=== PATIENT | male | born 1970 | race Caucasian/White ===

== ENCOUNTER 2016-09-12 18:59 | Inpatient (IN) | payer MEDICARE, MEDICAID ==
[~2016-09-12] VITALS: Ht 175.3 cm; Wt 148.3 kg
[~2016-09-12 18:59] MED LIST: AMBIEN CR12.5 MG ORAL; ANDROGEL75 G1 TD; BENICAR HCT 401 EACH ORAL; BUPROPION XL150 MG ORAL; BUPROPION XL300 MG ORAL; BYSTOLIC10 MG ORAL; CLINDAMYCIN HC300 MG ORAL; FUROSEMIDE40 MG ORAL; LEVOTHYROXINE25 MCG ORAL; LOSARTAN POTASS50 MG ORAL; NAPROXEN500 M2 ORAL; NORCO 10/3251 EA ORAL; NORVIR100 MG ORAL; POTASSIUM CHLO20 ME1 ORAL; PREZCOBIX 8001 EACH PO; PREZISTA400 MG ORAL; REVATIO20 MG ORAL; TRUVADA 200 MG1 EAC1 ORAL
--- NOTE | 2016-09-12 19:42 | Emergency Room Report ---
History of Present Illness General Chief Complaint: Dyspnea/Respdistress Source: Patient Present Illness HPI Patient's 45-year-old male who presented after increased respiratory patient gradual onset of symptoms associated with increased swelling to his lower extremities. Patient stated that he had prior history of lipodystrophy as well as HIV disease. Patient states that he had decreased exercise tolerance over the past few days. Patient was noted to have no fever. He had not cough. Allergies: Coded Allergies: No Known Allergies (Verified Allergy, Unknown, 03/24/08) Patient History Past Medical History: see triage record Reviewed Nursing Documentation: PMH: Agreed, PSxH: Agreed Nursing Documentation-PMH Hx Cardiac Problems: Yes - HIV+ Hx Hypertension: Yes Hx Cancer: No Hx Gastrointestinal Problems: Yes - BILATERAL INGUINAL HERNIA, UMBILICAL HERNIA Hx Neurological Problems: No Review of Systems All Other Systems: negative except mentioned in HPI Physical Exam Vital Signs Date Time Temp Pulse Resp B/P Pulse Ox O2 Delivery O2 Flow Rate FiO2 09/12/16 19:04 98.4 97 20 104/71 93 Room Air Sp02 EP Interpretation: reviewed, normal General Appearance: normal inspection, alert, GCS 15, non-toxic, obese, Chronically Ill Head: atraumatic ENT: normal ENT inspection, hearing grossly normal, normal voice Neck: full range of motion, supple, no bony tend, other - posterior neck fullness Respiratory: normal inspection, no respiratory distress, no retraction, decreased breath sounds, wheezing Cardiovascular #1: regular rate, rhythm, edema Gastrointestinal: normal inspection, normal bowel sounds, non tender, soft, no guarding, no hernia Genitourinary: no CVA tenderness Musculoskeletal: normal inspection, back normal, normal range of motion Neurologic: normal inspection, alert, oriented x3, responsive, risk management manager III-XII nml as tested, speech normal Psychiatric: normal inspection, judgement/insight normal, mood/affect normal Skin: normal inspection, normal color, no rash Medical Decision Making ER Course Patient presented for shortness of breath.Differential included but was not limited to anemia, pneumonia, pneumothorax, myocardial infarction, pericardial effusion, congestive heart failure, acidosis. Because of complexity of patient' s case laboratory testing and imaging studies were ordered.The patient was noted to have a decreased exercise tolerance. He was noted to have some wheezing on exam. Patient was given a breathing treatment. Laboratory testing was noted for a normal white blood count. 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 Dr. Trent Sam was contacted for inpatient management. Labs Test 09/12/16 19:30 09/12/16 19:50 09/13/16 05:30 D-Dimer 1244 ng/mL (<500) Troponin I < 0.30 ng/mL (<=0.30) Pro-B-Type Natriuretic Peptide 106 pg/mL (0-125) Anion Gap 14 (5-15) Total Bilirubin 0.4 mg/dL (0.0-1.2) Aspartate Amino Transf (AST/SGOT) 26 U/L (5-40) Alanine Aminotransferase (ALT/SGPT) 36 U/L (3-41) Alkaline Phosphatase 77 U/L (40-129) Total Protein 7.2 g/dL (6.6-8.7) Albumin 3.4 g/dL (3.5-5.2) Globulin 3.8 g/dL Albumin/Globulin Ratio 0.8 (1.0-2.7) Last Vital Signs Date Time Temp Pulse Resp B/P Pulse Ox O2 Delivery O2 Flow Rate FiO2 09/12/16 19:04 98.4 97 20 104/71 93 Room Air Status: unchanged Disposition: ADMITTED INPATIENT Condition: Serious Referrals: NOT CHOSEN SIOBHAN/,REFERRING (PCP) Mahad Farfan Sep 12, 2016 19:42
[2016-09-12] MEDS ORDERED: DuoNeb 0.5-3(2.5)mg/3ml neb HHN ONE (19:45)
[2016-09-12 19:55] LABS: BASOPHILS % (AUTO) 0.5 % (0.0-2.0); EOSINOPHILS % (AUTO) 0.8 % (0.0-3.0); LYMPHOCYTES % (AUTO) 15.1 % (20.0-45.0); MEAN CORPUSCULAR HGB CONC 36.4 G/DL (32.0-36.0); MEAN CORPUSCULAR VOLUME 93 FL (80-99); MEAN PLATELET VOLUME 6.7 FL (6.5-10.1); MONOCYTES % (AUTO) 6.5 % (1.0-10.0); NEUTROPHILS % (AUTO) 77.1 % (45.0-75.0); PLATELET COUNT 194 K/UL (150-450); RED BLOOD COUNT 5.07 M/UL (4.70-6.10); RED CELL DISTRIBUTION WIDTH 14.1 % (11.6-14.8); WHITE BLOOD COUNT 11.5 K/UL (4.8-10.8)
[2016-09-12 20:00] VITALS: BP 175/76
[2016-09-12 20:15] VITALS: BP 186/81
[2016-09-12 20:15] LABS: TROPONIN I < 0.30 ng/mL (<=0.30)
[2016-09-12 20:30] VITALS: BP 175/76
[2016-09-12 21:00] VITALS: BP 134/68
[2016-09-12 21:00] LABS: ALBUMIN/GLOBULIN RATIO 0.8 (1.0-2.7); CALCIUM 9.2 mg/dL (8.6-10.2); CREATININE 1.5 mg/dL (0.7-1.2); GLOMERULAR FILTRATION RATE 50.2 mL/min (>60); POTASSIUM 5.1 mEQ/L (3.4-4.9); TOTAL PROTEIN 7.2 g/dL (6.6-8.7)
[2016-09-12] MEDS ORDERED: Norco 10mg/325mg tab ORAL PRN (21:15)
--- NOTE | 2016-09-12 21:24 | History & Physical ---
History and Physical History & Physicial DATE OF ADMISSION: 09/12/16 REASON FOR ADMISSION: CHF HISTORY OF PRESENT ILLNESS: This is a 45-year-old male with history of HIV, hypertension, hepatitis C, status post treatment, who underwent repair of bilateral inguinal hernia and major repair of umbilical hernia on 05/31/2014 p/w worsening RODRIGUEZ over last few weeks. He states he can walk only a few ft bf getting SOB. He denies CP. PAST MEDICAL HISTORY: Hypertension, HIV, hepatitis C, status post treatment. Lipodystrophy syndrome. Hypothyroidism. PAST SURGICAL HISTORY: Inguinal hernia repair and umbilical hernia repair, bilateral inguinal hernia repair as well as hip replacement x2. ALLERGIES: No known drug allergies. MEDICATIONS: 1. Wellbutrin 300 mg p.o. once daily. 2. Prezista 600 mg p.o. b.i.d. 3. Truvada 200-300 mg one tablet daily. 4. [place] 10/325 mg one tablet p.o. q.4 h. as needed. 5. Levothyroxine 25 mcg p.o. daily. 6. Losartan 100 mg p.o. once daily. 7. Bystolic 10 mg p.o. once daily. 8. Ritonavir 100 mg p.o. b.i.d. 9. Naproxen 500 mg twice a day. FAMILY HISTORY: Noncontributory. SOCIAL HISTORY: The patient denies smoking. He denies drinking any alcohol. He denies any drug use. REVIEW OF SYSTEM: A 10-point review of systems is negative except for pertinent positives as mentioned above PHYSICAL EXAMINATION: Last 24 Hour Vital Signs Date Time Temp Pulse Resp B/P Pulse Ox O2 Delivery O2 Flow Rate FiO2 09/12/16 20:30 143 29 175/76 94 Room Air 09/12/16 20:15 163 29 Room Air 09/12/16 20:15 163 29 186/81 94 Room Air 09/12/16 20:01 80 16 99 Room Air 21 09/12/16 19:46 97 18 100 Room Air 21 09/12/16 19:46 95 18 Room Air 21 09/12/16 19:04 98.4 97 20 104/71 93 Room Air GENERAL: The patient is in no acute distress. The patient appears comfortable. Obese HEENT: Normocephalic/atraumatic. Sclerae are anicteric. [place] Hump. NECK: Supple. No JVD. LUNGS: Clear to auscultation bilaterally. HEART: Heart sounds are regular rate and rhythm. Decreased heart sounds. No murmurs, gallop, or rubs. ABDOMEN: Obese. Abdomen is diffusely tender mildly. Nondistended. EXTREMITIES: No clubbing, cyanosis, or edema. LABORATORY DATA: Laboratory Tests Test 09/12/16 19:30 09/12/16 19:50 White Blood Count 11.5 K/UL (4.8-10.8) H Red Blood Count 5.07 M/UL (4.70-6.10) Hemoglobin 17.2 G/DL (14.2-18.0) Hematocrit 47.4 % (42.0-52.0) Mean Corpuscular Volume 93 FL (80-99) Mean Corpuscular Hemoglobin 34.0 PG (27.0-31.0) H Mean Corpuscular Hemoglobin Concent 36.4 G/DL (32.0-36.0) H Red Cell Distribution Width 14.1 % (11.6-14.8) Platelet Count 194 K/UL (150-450) Mean Platelet Volume 6.7 FL (6.5-10.1) Neutrophils (%) (Auto) 77.1 % (45.0-75.0) H Lymphocytes (%) (Auto) 15.1 % (20.0-45.0) L Monocytes (%) (Auto) 6.5 % (1.0-10.0) Eosinophils (%) (Auto) 0.8 % (0.0-3.0) Basophils (%) (Auto) 0.5 % (0.0-2.0) D-Dimer 1244 ng/mL (<500) H Troponin I < 0.30 ng/mL (<=0.30) Pro-B-Type Natriuretic Peptide 106 pg/mL (0-125) Sodium Level 139 mEQ/L (135-145) Potassium Level 5.1 mEQ/L (3.4-4.9) H Chloride Level 98 mEQ/L (98-107) Carbon Dioxide Level 27 mEQ/L (20-30) Anion Gap 14 (5-15) Blood Urea Nitrogen 39 mg/dL (7-23) H Creatinine 1.5 mg/dL (0.7-1.2) H Estimat Glomerular Filtration Rate 50.2 mL/min (>60) Glucose Level 95 mg/dL (74-106) Calcium Level 9.2 mg/dL (8.6-10.2) Total Bilirubin 0.4 mg/dL (0.0-1.2) Aspartate Amino Transf (AST/SGOT) 26 U/L (5-40) Alanine Aminotransferase (ALT/SGPT) 36 U/L (3-41) Alkaline Phosphatase 77 U/L (40-129) Total Protein 7.2 g/dL (6.6-8.7) Albumin 3.4 g/dL (3.5-5.2) L Globulin 3.8 g/dL Albumin/Globulin Ratio 0.8 (1.0-2.7) L IMPRESSION: 1. RODRIGUEZ -concerning for acute CHF exacerbation 2. h/o Testicular hydrocele. 3. Human immunodeficiency virus. 4. Hypertension. 5. Hypothyroidism. 6. History of hepatitis C, status post treatment. 7. EDMOND 8. Morbid obesity 9. Metabolic syndrome 10. Lipodystrophy sydrome 11. Robeson hump 12. DONALDO PLAN: 1. Admit to tele 2. Lasix 40mg IV daily 3. Resume HIV medications. 4. Cards consult with Dr. Dodd 5. TTE ordered 6. EKG 7. refused CPAP. 8. r/o MACO Coy M.D. Sep 12, 2016 21:24
[2016-09-12] MEDS: Heparin 5000 units/ml inj SUBQ SCH (22:17)
[2016-09-12 22:19] VITALS: BP 145/88
[2016-09-13] VITALS: BP 123/65
[2016-09-13 04:50] VITALS: BP 121/66
[2016-09-13] MEDS ORDERED: Levothyroxine 25mcg tab ORAL SCH (06:30)
[2016-09-13 07:25] LABS: BASOPHILS % (AUTO) 0.3 % (0.0-2.0); EOSINOPHILS % (AUTO) 0.8 % (0.0-3.0); LYMPHOCYTES % (AUTO) 16.4 % (20.0-45.0); MEAN CORPUSCULAR HEMOGLOBIN 31.1 PG (27.0-31.0); MEAN CORPUSCULAR VOLUME 94 FL (80-99); MEAN PLATELET VOLUME 6.5 FL (6.5-10.1); MONOCYTES % (AUTO) 6.8 % (1.0-10.0); NEUTROPHILS % (AUTO) 75.7 % (45.0-75.0); PLATELET COUNT 231 K/UL (150-450); RED BLOOD COUNT 5.13 M/UL (4.70-6.10); RED CELL DISTRIBUTION WIDTH 14.7 % (11.6-14.8); WHITE BLOOD COUNT 9.5 K/UL (4.8-10.8)
[2016-09-13 07:31] LABS: CREATININE 1.6 mg/dL (0.7-1.2); GLOMERULAR FILTRATION RATE 46.6 mL/min (>60); POTASSIUM 4.6 mEQ/L (3.4-4.9)
[2016-09-13 08:01] VITALS: BP 129/79
[2016-09-13] MEDS ORDERED: Revatio 20mg tab ORAL SCH (09:00)
[2016-09-13] MEDS ORDERED: BuPROPion XL 300mg tab ORAL SCH (09:00)
[2016-09-13] MEDS ORDERED: Emitricitabine/Tenofovir 200/300mg tab ORAL SCH (09:00)
[2016-09-13] MEDS ORDERED: Albuterol ud Inhalation HHN PRN (10:00)
[2016-09-13] MEDS: Heparin 5000 units/ml inj SUBQ SCH (10:17)
--- NOTE | 2016-09-13 11:19 | Diagnostic Imaging Report ---
Indication: Chest Pain Comparison: January 12, 2000 A single view chest radiograph was obtained. Findings: Interstitial edema suspected with cardiomegaly. Bones are unremarkable in appearance. No consolidative opacities are identified. Impression: Suspected mild interstitial edema
[2016-09-13 11:48] VITALS: BP 140/80
--- NOTE | 2016-09-13 14:25 | Internal Med Progress Note ---
Subjective Date of Service: Sep 13, 2016 Physician Name Nadeem Bateman Attending Physician Trent Sam M.D. Current Medications Medications (Trade) Dose Ordered Sig/Nataliya Route PRN Reason Start Time Stop Time Status Last Admin Dose Admin Acetaminophen (Tylenol) 650 mg Q4H PRN ORAL Mild Pain (Pain Scale 1-3) 09/12/16 21:15 10/12/16 21:14 Acetaminophen/ Hydrocodone Bitart ([place] 10/325) 1 ea Q4H PRN ORAL Moderate Pain (Pain Scale 4-6) 09/12/16 21:15 09/19/16 21:14 09/13/16 10:00 Albuterol Sulfate (Proventil) 2.5 mg Q4H PRN HHN Shortness of Breath 09/13/16 10:00 09/18/16 09:59 09/13/16 13:26 Baclofen (Lioresal) 10 mg BID ORAL 09/13/16 12:00 10/13/16 11:59 Bupropion HCl (Wellbutrin XL) 300 mg DAILY ORAL 09/13/16 09:00 10/13/16 08:59 09/13/16 09:58 Dextrose (Dextrose 50%) STAT PRN IV Hypoglycemia 09/12/16 21:15 10/12/16 21:14 Emtricitabine/ Tenofovir (Truvada 200/ 300mg) 1 tab DAILY ORAL 09/13/16 09:00 10/13/16 08:59 UNV Furosemide (Lasix) 40 mg DAILY IV 09/12/16 22:00 10/12/16 21:59 09/13/16 09:57 Heparin Sodium (Porcine) (Heparin 5000 units/ml) 5,000 units EVERY 12 HOURS SUBQ 09/12/16 22:00 10/12/16 21:59 09/13/16 10:17 Levothyroxine Sodium (Synthroid) 25 mcg DAILY@0630 ORAL 09/13/16 06:30 10/13/16 06:29 09/13/16 05:59 Nebivolol (Bystolic) 10 mg DAILY ORAL 09/13/16 09:00 10/13/16 08:59 09/13/16 10:00 Ondansetron HCl (Zofran) 4 mg Q6H PRN IVP Nausea & Vomiting 09/12/16 21:15 10/12/16 21:14 Sildenafil Citrate (Revatio) 20 mg DAILY ORAL 09/13/16 09:00 10/13/16 08:59 09/13/16 10:00 Temazepam (Restoril) 15 mg HSPRN PRN ORAL Insomnia 09/12/16 21:15 09/19/16 21:14 09/13/16 02:43 Allergies: Coded Allergies: No Known Allergies (Verified Allergy, Unknown, 03/24/08) ROS Limited/Unobtainable: No Constitutional: Reports: no symptoms HEENT: Reports: no symptoms Cardiovascular: Reports: no symptoms Respiratory: Reports: shortness of breath Gastrointestinal/Abdominal: Reports: no symptoms Genitourinary: Reports: no symptoms Neurologic/Psychiatric: Reports: no symptoms Subjective 45 YO M admitted for dyspnea on exertion. Now CHF. Cover for Int Med-Dr Sam. Objective Last Vital Signs Date Time Temp Pulse Resp B/P Pulse Ox O2 Delivery O2 Flow Rate FiO2 09/13/16 13:28 99 16 99 Room Air 21 09/13/16 11:48 97.0 140/80 Laboratory Tests Test 09/12/16 19:30 09/12/16 19:50 09/13/16 05:30 White Blood Count 11.5 K/UL (4.8-10.8) H 9.5 K/UL (4.8-10.8) Red Blood Count 5.07 M/UL (4.70-6.10) 5.13 M/UL (4.70-6.10) Hemoglobin 17.2 G/DL (14.2-18.0) 16.0 G/DL (14.2-18.0) Hematocrit 47.4 % (42.0-52.0) 48.4 % (42.0-52.0) Mean Corpuscular Volume 93 FL (80-99) 94 FL (80-99) Mean Corpuscular Hemoglobin 34.0 PG (27.0-31.0) H 31.1 PG (27.0-31.0) H Mean Corpuscular Hemoglobin Concent 36.4 G/DL (32.0-36.0) H 33.0 G/DL (32.0-36.0) Red Cell Distribution Width 14.1 % (11.6-14.8) 14.7 % (11.6-14.8) Platelet Count 194 K/UL (150-450) 231 K/UL (150-450) Mean Platelet Volume 6.7 FL (6.5-10.1) 6.5 FL (6.5-10.1) Neutrophils (%) (Auto) 77.1 % (45.0-75.0) H 75.7 % (45.0-75.0) H Lymphocytes (%) (Auto) 15.1 % (20.0-45.0) L 16.4 % (20.0-45.0) L Monocytes (%) (Auto) 6.5 % (1.0-10.0) 6.8 % (1.0-10.0) Eosinophils (%) (Auto) 0.8 % (0.0-3.0) 0.8 % (0.0-3.0) Basophils (%) (Auto) 0.5 % (0.0-2.0) 0.3 % (0.0-2.0) D-Dimer 1244 ng/mL (<500) H Troponin I < 0.30 ng/mL (<=0.30) Pro-B-Type Natriuretic Peptide 106 pg/mL (0-125) Sodium Level 139 mEQ/L (135-145) 139 mEQ/L (135-145) Potassium Level 5.1 mEQ/L (3.4-4.9) H 4.6 mEQ/L (3.4-4.9) Chloride Level 98 mEQ/L (98-107) 98 mEQ/L (98-107) Carbon Dioxide Level 27 mEQ/L (20-30) 32 mEQ/L (20-30) H Anion Gap 14 (5-15) 9 (5-15) Blood Urea Nitrogen 39 mg/dL (7-23) H 48 mg/dL (7-23) H Creatinine 1.5 mg/dL (0.7-1.2) H 1.6 mg/dL (0.7-1.2) H Estimat Glomerular Filtration Rate 50.2 mL/min (>60) 46.6 mL/min (>60) Glucose Level 95 mg/dL (74-106) 113 mg/dL (74-106) H Calcium Level 9.2 mg/dL (8.6-10.2) 9.0 mg/dL (8.6-10.2) Total Bilirubin 0.4 mg/dL (0.0-1.2) Aspartate Amino Transf (AST/SGOT) 26 U/L (5-40) Alanine Aminotransferase (ALT/SGPT) 36 U/L (3-41) Alkaline Phosphatase 77 U/L (40-129) Total Protein 7.2 g/dL (6.6-8.7) Albumin 3.4 g/dL (3.5-5.2) L Globulin 3.8 g/dL Albumin/Globulin Ratio 0.8 (1.0-2.7) L Intake and Output 09/12/16 09/13/16 19:00 07:00 Intake Total 0 ml Output Total 1000 ml Balance -1000 ml Intake Oral 0 ml Output Urine Total 0 ml Other 1000 ml # Bowel Movements 3 Objective General: alert, cooperative, no distress, appears stated age Head: normocephalic, without obvious abnormality, atraumatic Eyes: conjunctivae/corneas clear. PERRL, EOM's intact Throat: lips, mucosa, and tongue normal. MMM Neck: supple, symmetrical, trachea midline, and no JVD Lungs: clear to auscultation bilaterally Heart: regular rate and rhythm, S1, S2 normal, no murmur, click, rub or gallop Abdomen: soft, non-tender, non-distended, bowel sounds normal; no masses or organomegaly Extremities: extremities normal, atraumatic, no cyanosis or edema Pulses: 2+ and symmetric Skin: skin color, texture, turgor normal; no rashes or lesions Neurologic: grossly normal, no focal deficits Assessment/Plan Problem List: (1) HIV (human immunodeficiency virus infection) Assessment & Plan: Cont HAART (2) HTN (hypertension) Assessment & Plan: Cont bysolic (3) Hepatitis C (4) RODRIGUEZ (dyspnea on exertion) (5) Hypothyroidism Assessment & Plan: Cont levoxyl. (6) Major depression Assessment & Plan: Continue welbutrin (7) SOB (shortness of breath) Assessment & Plan: Due to CHF (8) Pedal edema (9) CHF (congestive heart failure) Assessment & Plan: Await cardiology consult and echocardiogram. Status: not improved NADEEM BATEMAN Sep 13, 2016 14:25
[2016-09-13 16:07] VITALS: BP 119/59
--- NOTE | 2016-09-13 21:15 | Consultation ---
DATE OF CONSULTATION: 09/13/2016 CONSULTING PHYSICIAN: Hans Nolan M.D. REFERRING PHYSICIAN: Trent Sam MD REASON FOR CONSULTATION: Renal failure. HISTORY OF PRESENT ILLNESS: This is a 45-year-old pleasant white male with history of HIV for the past 27 years. The patient has also history of hypertension for many years and previous history of hepatitis C, which he said was cured by medications. The patient was admitted for diagnosis of acute CHF exacerbation, although the patient denies history of heart problems. The patient is getting diuretic Lasix 40 mg daily. He has also significant leg edema. He states that his right lower extremity edema is as a result of his hernia repair, but on other hand, the patient has also edema on the left lower extremity as well. The patient's BUN and creatinine were 48 and 1.6 today and yesterday were 39 and 1.5. PAST MEDICAL HISTORY: Also history of hypothyroidism and history of hip replacement. ALLERGIES: No known drug allergies. MEDICATIONS: Reviewed in EMR. SOCIAL HISTORY: No history of smoking or alcohol abuse. 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 REVIEW OF SYSTEMS: Noncontributory. PHYSICAL EXAMINATION: GENERAL: The patient is an obese male, in no acute distress. VITAL SIGNS: Blood pressure is 129/79, pulse 100, temperature 97.5, and respiratory rate is 22. HEENT: [place] conjunctivae. Anicteric sclerae. NECK: Supple. LUNGS: Clear to auscultation. HEART: S1 and S2 without murmurs or rubs. ABDOMEN: Soft and nontender. EXTREMITIES: Bilateral pedal edema. LABORATORY FINDINGS: The chemistry panel shows serum sodium 139, potassium 4.6, chloride 98, CO2 32, BUN is 48, and creatinine 1.6. CBC shows WBC of 9.5, hematocrit is 48.4, hemoglobin is 16, and platelets 231,000. ASSESSMENT: This is a 45-year-old white male who was admitted with fluid overload with diagnosis of congestive heart failure exacerbation. He has significant peripheral edema. He has renal failure. The risk factors include human immunodeficiency virus, which could cause human immunodeficiency virus nephropathy as well as hypertensive nephropathy. Unlikely that hepatitis C causing this kidney disease. Usually, it is associated with glomerulonephritis. Reportedly, he was taking naproxen at home, which could also contribute to his nephropathy. It is unclear what his baseline serum creatinine is. The patient claims that he has a 24-hour urine collections done as an outpatient. So, I am assuming that he has had CKD as outpatient. PLAN: 1. I would continue with IV diuretics. 2. A UA will be done to see if the patient has any active sediment or proteinuria. 3. A renal ultrasound needs to be done if not done in the past. 4. The patient should be off any NSAIDs now and in the future. 5. A serum PTH level will be done with morning labs to rule out any secondary hypothyroidism in the setting of CKD. Thank you very much, Dr. Sam, for this consultation. Hans Nolan M.D. DR: SANTHOSH JOB#: [id number] CC: THAD
--- NOTE | 2016-09-13 23:05 | Cardiology Progress Note ---
Assessment/Plan Assessment/Plan Cardiology consultation was made at request of Dr. Sam and Ekaterina: 1. Dyspnea likely due to severe pulmonary HTN, will discuss with the patient and the laborer car barn regarding right heart catheterization to verify APAH ( Group I PAH). Already on phosphodiesterase, may require combination therapy with ERA's or prostacyclines. 2. Normal LV systolic function 3. HIV disease Objective Last 24 Hour Vital Signs Date Time Temp Pulse Resp B/P Pulse Ox O2 Delivery O2 Flow Rate FiO2 09/13/16 17:00 83 09/13/16 16:07 97.3 96 20 119/59 95 Room Air 09/13/16 13:28 99 16 99 Room Air 21 09/13/16 13:25 97 18 99 Room Air 21 09/13/16 11:48 97.0 99 20 140/80 95 Room Air 09/13/16 08:01 97.5 100 22 129/79 95 Room Air 09/13/16 08:00 101 09/13/16 05:04 108 09/13/16 04:50 98.6 100 19 121/66 94 Room Air 09/13/16 01:13 103 09/13/16 00:00 97.9 101 19 123/65 90 Room Air Intake and Output 09/12/16 09/13/16 19:00 07:00 Intake Total 0 ml Output Total 1000 ml Balance -1000 ml Intake Oral 0 ml Output Urine Total 0 ml Other 1000 ml # Bowel Movements 3 Laboratory Tests Test 09/13/16 05:30 White Blood Count 9.5 K/UL (4.8-10.8) Red Blood Count 5.13 M/UL (4.70-6.10) Hemoglobin 16.0 G/DL (14.2-18.0) Hematocrit 48.4 % (42.0-52.0) Mean Corpuscular Volume 94 FL (80-99) Mean Corpuscular Hemoglobin 31.1 PG (27.0-31.0) H Mean Corpuscular Hemoglobin Concent 33.0 G/DL (32.0-36.0) Red Cell Distribution Width 14.7 % (11.6-14.8) Platelet Count 231 K/UL (150-450) Mean Platelet Volume 6.5 FL (6.5-10.1) Neutrophils (%) (Auto) 75.7 % (45.0-75.0) H Lymphocytes (%) (Auto) 16.4 % (20.0-45.0) L Monocytes (%) (Auto) 6.8 % (1.0-10.0) Eosinophils (%) (Auto) 0.8 % (0.0-3.0) Basophils (%) (Auto) 0.3 % (0.0-2.0) Sodium Level 139 mEQ/L (135-145) Potassium Level 4.6 mEQ/L (3.4-4.9) Chloride Level 98 mEQ/L (98-107) Carbon Dioxide Level 32 mEQ/L (20-30) H Anion Gap 9 (5-15) Blood Urea Nitrogen 48 mg/dL (7-23) H Creatinine 1.6 mg/dL (0.7-1.2) H Estimat Glomerular Filtration Rate 46.6 mL/min (>60) Glucose Level 113 mg/dL (74-106) H Calcium Level 9.0 mg/dL (8.6-10.2) NOEL BEJARANO Sep 13, 2016 23:05
--- NOTE | 2016-09-14 14:58 | Discharge Summary ---
Discharge Summary Hospital Course Date of Admission Sep 12, 2016 at 21:00 Date of Discharge Sep 13, 2016 at 21:50 Admitting Diagnosis respiratory distress HPI Riley Morales is a 45 year old male who was admitted on Sep 12, 2016 at 21:00 for Respiratory Distress Hospital Course dc summary #[id number] Discharge Discharge Disposition Patientsigned AMA Discharge Diagnoses: Discharge Instructions Discharge Instructions Special Instructions I have been assigned to complete a D/C Summary on this account. I was not involved in the patient management Becca Kumar NP (Vanchtein) Sep 14, 2016 14:58
--- NOTE | 2016-09-14 21:45 | Discharge Summary ---
Discharge Summary Hospital Course Date of Admission Sep 12, 2016 at 21:00 Date of Discharge Sep 13, 2016 at 21:50 Admitting Diagnosis respiratory distress HPI Riley Morales is a 45 year old male w/ h/o HIV who was admitted on Sep 12, 2016 at 21:00 for Respiratory Distress. He was found to have fluid overload likely 2/2 CHF. He was started on Lasix 40mg IV daily. He left hospital AMA bc did not have his HIV meds the following day. Discharge Condition Upon Discharge: stable Discharge Disposition Patient was discharged to Discharge Diagnoses: MACO FONSECA M.D. Sep 14, 2016 21:45
== END 2016-09-13 21:50 | disposition left against medical advice (07) | DRG 291 ==
LOC: EMR 19:35 → EDBEDREQ 20:36 → 2E 21:00
DX: I50.9 Heart failure, unspecified (principal); B20 Human immunodeficiency virus [HIV] disease; N17.9 Acute kidney failure, unspecified; Z68.42 Body mass index [BMI] 45.0-49.9, adult; E66.01 Morbid (severe) obesity due to excess calories; E88.81 Metabolic syndrome and other insulin resistance; I27.2 Other secondary pulmonary hypertension; I10 Essential (primary) hypertension; E03.9 Hypothyroidism, unspecified; Z86.19 Personal history of other infectious and parasitic diseases; G47.33 Obstructive sleep apnea (adult) (pediatric); Z96.649 Presence of unspecified artificial hip joint; E87.70 Fluid overload, unspecified; F32.9 Major depressive disorder, single episode, unspecified
CPT/HCPCS: 36415; 71010; 80048; 80053; 83880; 84484; 85025; 85379; 93005; 93306; 94640; 94664; J7620